=== PATIENT | male | born 1975 | race Two or more races ===

== ENCOUNTER 2019-06-18 17:02 | Emergency (ER) | payer OTHER ==
[~2019-06-18] VITALS: Ht 167.6 cm; Wt 80.0 kg
[~2019-06-18 17:02] MED LIST: ASPI-630 PO; DOCU-109 PO; IBUP-1007 PO; MAGN100T6 PO; PANT40TA77 PO
--- NOTE | 2019-06-18 17:27 | PHYS DOC ---
Past Medical History Past Medical History: GERD, Kidney Stone Past Surgical History: Appendectomy Smoking Status: Former Smoker Alcohol Use: None General Adult EDM: Chief Complaint: RECTAL BLEED HPI: HPI: Patient is a 44 year old Male who presents with from [facility] with today had a bloody stool. He states that some of it was bright red and some of it was dark. States last couple days he is had diarrhea. He states he is also been having right lower abdominal pain. He states the pain in his right pelvis area is a sharp stabbing pain and the pain right above into the right lower quadrant is more of a throbbing pain. He states he is urinating without difficulty. Rates his pain an 8 out of 10. He is on 81 mg aspirin a day. Back in May he states that he did have a inguinal hernia that had an incarcerated bowel. Other history is kidney stone, appendectomy, GERD. 2 days ago patient was tested for COVID-19 and it was negative. Review of Systems: Review of Systems: GI: RLQ abdominal pain, Denies nausea, vomiting. + bloody stools or +diarrhea. [] Heart Score: Risk Factors: Risk Factors: DM, Current or recent (<one month) smoker, HTN, HLP, family history of CAD, obesity. Risk Scores: Score 0 - 3: 2.5% MACE over next 6 weeks - Discharge Home Score 4 - 6: 20.3% MACE over next 6 weeks - Admit for Clinical Observation Score 7 - 10: 72.7% MACE over next 6 weeks - Early Invasive Strategies Allergies: Allergies: Allergies Coded Allergies Type Severity Reaction Last Updated Verified naproxen Allergy Intermediate Rash 04/03/19 Yes Physical Exam: PE: Constitutional: Well developed, well nourished, no acute distress, non-toxic appearance. [] HENT: Normocephalic, atraumatic, bilateral external ears normal, oropharynx moist, no oral exudates, nose normal. [] Eyes: PERRLA, EOMI, conjunctiva normal, no discharge. [] Neck: Normal range of motion, no tenderness, supple, no stridor. [] Cardiovascular:Heart rate regular rhythm, no murmur [] Lungs & Thorax: Bilateral breath sounds clear to auscultation [] Abdomen: Bowel sounds normal, soft, RLLQ tenderness, no masses, no pulsatile masses. [] Skin: Warm, dry, no erythema, no rash. [] Back: No tenderness, no CVA tenderness. [] Extremities: No tenderness, no cyanosis, no clubbing, ROM intact, no edema. [] Neurologic: Alert and oriented X 3, normal motor function, normal sensory function, no focal deficits noted. [] Psychologic: Affect normal, judgement normal, mood normal. [] EKG: EKG: [] Radiology/Procedures: Radiology/Procedures: [] Impression: [facility] [address] [place] [address] IMAGING REPORT Signed PATIENT: BON WHITE ACCOUNT: [id number] : 1975 LOCATION: ER AGE: 44 SEX: M EXAM STATUS: REG ER ORD. PHYSICIAN: RENETTA YOUNG APRN REASON: BLOODY STOOLS PROCEDURE: CT ABD PELV W/ IV CONTRST ONLY CT abdomen pelvis with contrast dated 06/18/2019. Comparison made to 04/03/2019. CLINICAL INDICATION: Bloody stools. TECHNIQUE: Contiguous axial imaging of the abdomen and pelvis performed after the administration of 75 cc Omnipaque 300. One or more of the following individualized dose reduction techniques were utilized for this examination: 1. Automated exposure control 2. Adjustment of the mA and/or kV according to patient size 3. Use of iterative reconstruction technique. FINDINGS: Limited images of lung bases are clear. Heart size within normal limits. No pleural or pericardial effusion. There is a calcified granuloma right lower lobe. Liver, spleen, pancreas, adrenal glands, gallbladder and kidneys are unremarkable. No hydronephrosis. There is a circumscribed low-density focus at the midpole left kidney, most consistent with cysts, unchanged. 7 mm calcific stone at the midpole left kidney. Unopacified GI tract normal in caliber and contour. No focal bowel wall thickening. No inflammatory stranding in the mesentery. The appendix is surgically absent. There are a few scattered diverticula within the colon. No paracolonic inflammatory changes. No free fluid or lymphadenopathy. Images of pelvis show nondistended urinary bladder. The prostate gland is normal in size. No free fluid or pelvic lymphadenopathy. Interval inguinal hernia repair on the right. Bone windows show no acute findings. IMPRESSION: 1. No acute abnormality of abdomen or pelvis. 2. Interval right inguinal hernia repair. 3. Left-sided nephrolithiasis, nonobstructive. Electronically signed by: Jt Shahid MD (06/18/2019 6:31 PM) [facility] [place] DICTATED and SIGNED BY: JT SHAHID MD DATE: 06/18/191830 Course & Med Decision Making: Course & Med Decision Making Pertinent Labs and Imaging studies reviewed. (See chart for details) Abdomen is soft but tender in the right lower abdominal quadrant and pelvic area. He denies any testicular pain or swelling. He denies any dysuria. He denies fever, nausea, vomiting, constipation, cough, headache, dizziness, chest pain, soa. With the rectal examination there was no stool in the vault so a fecal occult stool cannot be done. There was no blood seen rectally. Rectal Exam: Normal tone, No mass, Positive control Stool: No stool in vault Guaiac: No stool in vault [] Dragon Disclaimer: Juju Disclaimer: This electronic medical record was generated, in whole or in part, using a voice recognition dictation system. Departure Departure Impression: Primary Impression: Bloody diarrhea Additional Impression: Abdominal pain Qualified Codes: R10.31 - Right lower quadrant pain Disposition: 01 HOME, SELF-CARE Condition: STABLE Referrals: NO PCP (PCP) BRADY BENAVIDEZ MD Patient Instructions: Bloody Diarrhea Additional Instructions: Follow up with GI doctor as soon as possible. If bleeding becomes severe return to the Emergency room. Drink plenty of fluids to stay hydrated. RENETTA YOUNG SIGNALING DESIGN ENGINEER June 18, 2019 17:27
[2019-06-18] MEDS ORDERED: fentaNYL PF VIAL 100 MCG/2 ML VIAL IVP ONE (17:30)
[2019-06-18] MEDS ORDERED: IV NORMAL SALINE 1000ML BAG 1,000 ML IV ONE (17:30)
[2019-06-18 17:39] LABS: BASO # 0.1 x10^3/uL (0.0-0.2); BASO % 1 % (0-3); EOS # 0.1 x10^3/uL (0.0-0.7); EOS % 2 % (0-3); HEMATOCRIT 45.6 % (39.0-53.0); HEMOGLOBIN 15.6 g/dL (13.0-17.5); LYMPH % 32 % (24-48); MEAN CORPUSCULAR HEMOGLOBIN 31 pg (25-35); MEAN CORPUSCULAR HGB CONC 34 g/dL (31-37); MEAN CORPUSCULAR VOLUME 89 fL (79-100); MONO # 0.7 x10^3/uL (0.0-1.1); MONO % 7 % (0-9); NEUT # 5.5 x10^3/uL (1.8-7.7); NEUT % 58 % (31-73); PLATELET COUNT 281 x10^3/uL (140-400); RED BLOOD COUNT 5.11 x10^6/uL (4.30-5.70); RED CELL DISTRIBUTION WIDTH 13.1 % (11.5-14.5); WHITE BLOOD COUNT 9.5 x10^3/uL (4.0-11.0)
[2019-06-18 17:46] LABS: CALCIUM 8.8 mg/dL (8.5-10.1); CREATININE 0.8 mg/dL (0.7-1.3); GFR 104.1; POTASSIUM 3.7 mmol/L (3.5-5.1)
[2019-06-18 17:52] LABS: ALBUMIN 3.7 g/dL (3.4-5.0); TOTAL BILIRUBIN 0.3 mg/dL (0.2-1.0); TOTAL PROTEIN 7.5 g/dL (6.4-8.2)
[2019-06-18 18:00] LABS: PROTHROMBIN TIME PATIENT 11.8 SEC (11.7-14.0)
[2019-06-18] MEDS ORDERED: CONTRAST GIVEN. MC PRN (18:00)
[2019-06-18] MEDS ORDERED: IOHEXOL 300 MG/ML 100ML VIAL. IV ONE (18:00)
--- NOTE | 2019-06-18 18:35 | RAD ---
CT abdomen pelvis with contrast dated 06/18/2019. Comparison made to 04/03/2019. CLINICAL INDICATION: Bloody stools. TECHNIQUE: Contiguous axial imaging of the abdomen and pelvis performed after the administration of 75 cc Omnipaque 300. One or more of the following individualized dose reduction techniques were utilized for this examination: 1. Automated exposure control 2. Adjustment of the mA and/or kV according to patient size 3. Use of iterative reconstruction technique. FINDINGS: Limited images of lung bases are clear. Heart size within normal limits. No pleural or pericardial effusion. There is a calcified granuloma right lower lobe. Liver, spleen, pancreas, adrenal glands, gallbladder and kidneys are unremarkable. No hydronephrosis. There is a circumscribed low-density focus at the midpole left kidney, most consistent with cysts, unchanged. 7 mm calcific stone at the midpole left kidney. Unopacified GI tract normal in caliber and contour. No focal bowel wall thickening. No inflammatory stranding in the mesentery. The appendix is surgically absent. There are a few scattered diverticula within the colon. No paracolonic inflammatory changes. No free fluid or lymphadenopathy. Images of pelvis show nondistended urinary bladder. The prostate gland is normal in size. No free fluid or pelvic lymphadenopathy. Interval inguinal hernia repair on the right. Bone windows show no acute findings. IMPRESSION: 1. No acute abnormality of abdomen or pelvis. 2. Interval right inguinal hernia repair. 3. Left-sided nephrolithiasis, nonobstructive. Electronically signed by: Jt Shahid MD (06/18/2019 6:31 PM) [facility]
[2019-06-18 18:41] LABS: BILIRUBIN,URINE NEGATIVE (NEG); CLARITY,URINE CLEAR; COLOR,URINE YELLOW; NITRITE,URINE NEGATIVE (NEG); PH,URINE 7.5 (<5.0-8.0); PROTEIN,URINE NEGATIVE (NEG-TRACE); UROBILINOGEN,URINE 0.2 mg/dL (0.2 mg/dL)
[2019-06-18 18:42] LABS: SQUAMOUS EPITHELIAL CELL,UR FEW /LPF
[2019-06-18 18:43] LABS: AMORPHOUS SEDIMENT,UR PRESENT /HPF; BACTERIA,URINE 0 /HPF (0-FEW); GRANULAR CASTS,URINE OCCASIONAL /HPF; RBC,URINE 0 /HPF (0-2); WBC,URINE 0 /HPF (0-4)
[2019-06-18 19:07] VITALS: BP 119/63
== END 2019-06-18 19:12 | disposition home or self-care (01) ==
LOC: ER 17:02 → EEVIPCON 17:02 → ER 19:12
DX: R19.7 Diarrhea, unspecified (principal); R10.31 Right lower quadrant pain; R10.2 Pelvic and perineal pain; K21.9 Gastro-esophageal reflux disease without esophagitis; Z87.442 Personal history of urinary calculi; Z90.89 Acquired absence of other organs; Z87.891 Personal history of nicotine dependence; Z88.6 Allergy status to analgesic agent
CPT/HCPCS: 36415; 74177; 80053; 81001; 85025; 85610; 96361; 96374; 99285; J3010; J7030; Q9967